=== PATIENT | male | born 1965 | race Caucasian/White ===

== ENCOUNTER 2017-02-07 09:04 | Emergency (ER) | payer OTHER ==
[2017-02-07] VITALS (8 sets, daily range): BP systolic 127–187; BP diastolic 86–126; PULSE 79–89; RESP 15–21; O2SAT 93–98
[~2017-02-07] VITALS: Ht 177.8 cm; Wt 141.4 kg
[~2017-02-07 09:04] MED LIST: NO HOME MEDICATIONS
--- NOTE | 2017-02-07 09:34 | ED.REPORT ---
HPI-Chest Pain 40 and Over Date of Service February 07, 2017 ED Provider: Jagjit Patel MD 51 y/o male with a hx of HTN presents to the ED complaining of sharp substernal chest pain, onset 06:30, that lasted a couple of minutes. The pt reports his pain has now become dull and rates it 7/10 in severity. He states the pain " went through me" but denies the pain radiating to a specific location.The pt reports he laid down to rest when he began experiencing sudden SOB. Deep breathing exacerbates the pain. He denies fever, diaphoresis, hematemesis, chest pain with palpation and taking hormone based medications. He states he has had heart burn before and today's sx seem different. The pt has never experienced similar sx before. He went to the Urgent Care where he was given Aspirin and advised to go to ED. The pt has not been taking his BP medication. His BP on arrival is 187/126. The pt reports he has chronic allergies which result in cough and mild chest pain. The pt takes Zantac occasionally. He has not been given Nitro yet. No hx of blood clots. Nursing Notes Stated Complaint: CHEST PAIN Chief Complaint: Chest Pain Nursing Notes Reviewed: Yes Allergies: Coded Allergies: acetaminophen (Verified Allergy, Mild, GI UPSET - NAUSEA, 07/10/16) hydrocodone (Verified Allergy, Mild, GI UPSET - NAUSEA, 07/10/16) Miscellaneous Medications ([No Home Medications]) General Time Seen by MD: 09:29 Chief Complaint Chest pain Hx Obtained From: Patient Arrived By: Walk-in Sudden in Onset?: Yes Onset Occurred: 1 - 4 hours ago Symptom Duration: 1 - 15 minutes Location: : Substernal Quality: Painful Radiation: : Does not radiate Severity: Current: Pain level 2 out of 10 Severity: Maximum: Severe Recent Healthcare: No recent doctor visit Similar Sx Previous: No Past Medical History Past Medical History Reports: Hypertension Past Surgical History Orthoscopic knee surgery Smoking History Current Every Day Smoker (Cigar) Social History Alcohol Use: "Social" Drug Use: Denies drug use Other Social History: Good social support Ambulatory Status Independent Review of Systems Constitutional: Denies: Fever Respiratory: Reports: Shortness of breath Cardiovascular: Reports: Chest pain GI: Denies: Hematemesis Skin: Denies Diaphoresis Complete sys rev & neg: except as marked. Physical Exam Initial Vital Signs Vital Signs (First) Date Time Temp Pulse Resp B/P Pulse Ox O2 Delivery O2 Flow Rate FiO2 02/07/17 09:08 36.9 89 18 187/126 98 Room Air Initial VS: Reviewed Head / Eyes: Atraumatic, Normocephalic, PERRL Neck: Supple, Full range of motion Skin: Warm, Dry, No cyanosis Neurologic: Alert, Oriented, Nonfocal General/Constitutional: Awake, Alert Afebrile Comfortable Non-diaphoretic Respiratory / Chest: Atraumatic, No rales, No rhonchi Inspiratory wheezes in upper left lobe. Cardiovascular: Heart rate NL, Regular rhythm, Heart sounds NL, No gallop, No murmurs, No rubs Lower Ext Edema: Positive: Bilateral 1+, Pitting Bilateral and storng pulses. Back: Atraumatic, Full range of motion Lower Extremity / Pelvis / MS: Atraumatic, Full range of motion, Neurologic intact, Vascular intact Upper Extremity / MS: Atraumatic, Full range of motion, Neurologic intact, Vascular intact Interpretation & Diagnostics Lab Results Interpretation Result Diagram: 02/07/17 0925 02/07/17 0925 Test 02/07/17 09:25 02/07/17 11:35 White Blood Count 8.1th/mm3 (3.8-10.1) Red Blood Count 5.08mil/mm3 (4.40-5.80) Hemoglobin 16.3g/dL (13.8-17.2) Hematocrit 48.1% (41.0-50.0) Mean Corpuscular Volume 94.7fL (81-100) Mean Corpuscular Hemoglobin 32.1pg (27.0-35.0) Mean Corpuscular Hemoglobin Concent 33.9% (32.0-37.0) Red Cell Distribution Width 13.8% (12.3-15.4) Platelet Count 220bil/L (150-400) Neutrophils (%) (Auto) 60.9% (40-74) Lymphocytes (%) (Auto) 24.6% (14-46) Monocytes (%) (Auto) 11.1% (4-12) Eosinophils (%) (Auto) 2.5% (0-5) Basophils (%) (Auto) 0.4% (0-3) D-Dimer < 0.50mg/L FEU (<0.50) Sodium Level 138mEq/L (134-144) Potassium Level 4.2mEq/L (3.5-5.2) Chloride Level 100mEq/L (97-108) Carbon Dioxide Level 26mmol/L (18-29) Blood Urea Nitrogen 14mg/dL (6-24) Creatinine 0.80mg/dL (0.76-1.27) Estimat Glomerular Filtration Rate 109mL/min (>59) Glucose Level 120mg/dL (60-99) Calcium Level 9.1mg/dL (8.5-10.1) Magnesium Level 1.9mg/dL (1.6-2.6) Total Bilirubin 0.2mg/dL (0.0-1.2) Aspartate Amino Transf (AST/SGOT) 31U/L (0-50) Alanine Aminotransferase (ALT/SGPT) 57U/L (0-44) Alkaline Phosphatase 69U/L (25-150) Total Protein 6.9g/dL (6.4-8.4) Albumin 3.9g/dL (3.4-5.0) Hold Mercer Top Tube Received (Received) Troponin T < 0.010ug/L (0.0-0.011) ECG Interpretation ECG Interpretation: Normal sinus rhythm. Rate 83. Time: 09:29 Interpreted by: ED physician X-Ray Chest Interpretation Chest Xray Interpretation: IMPRESSION: Negative chest. No acute cardiopulmonary process is evident. Dictated by: Richard Madrid M.D. on 02/07/2017 at 8:44 Approved by: Richard Madrid M.D. on 02/07/2017 at 8:44 View: Portable, 1 view Interpretation / Wet Read by: Interpret - Radiologist Re-Eval/Medical Decision Source of Hx: Old records, Family Time of Eval: 13:01 Re-Evaluation/Progress Note: Rechecked pt. Discussed lab, imaging results and diagnosis. Informed the pt of the plan to discharge. Pt understands and agrees with plan. F/U instructions and RTER warning given. All questions addressed. Counseled Regarding: Diagnosis, Lab results Discharge & Departure Primary Impression: Chest pain Chest pain type: unspecified Qualified Code: R07.9 - Chest pain, unspecified Disposition: Home Discharge Condition All VS Reviewed: Yes Condition: Stable Patient Instructions: Chest Pain (ED) Additional Instructions: Your lab and imaging results were reassuring. There is no sign of heart attack, pneumonia, aortic dissection (tear in a blood vessel), or pulmonary embolism ( blood clot in the chest). You may require further cardiac testing. I recommend that you put your primary care doctor to discuss further testing. You may be able to get an appointment sooner if you mention you need the test for an ER follow-up. Return to the emergency department in case of difficulty breathing, significant increase in chest pain, or any new or concerning symptoms. Referrals: [facility] Scribe Attestation Portions of this note were transcribed by Alcides Ervin. I, , personally performed the history, physical exam and medical decision-making;I reviewed and confirmed the accuracy of the information in the transcribed note. Signed by Ira Daugherty. 02/07/17 1634 copies to: [facility] Jagjit Patel MD February 07, 2017 09:34 Alcides Ervin February 07, 2017 09:51 Alcides Ervin February 07, 2017 09:51
[2017-02-07 09:36] LABS: BASOPHILS % (AUTO) 0.4 % (0-3); EOSINOPHILS % (AUTO) 2.5 % (0-5); MONOCYTES % (AUTO) 11.1 % (4-12); Mean Corpuscular Hemoglobin 32.1 pg (27.0-35.0); Mean Corpuscular Volume 94.7 fL (81-100); NEUTROPHILS % (AUTO) 60.9 % (40-74); Platelet Count 220 bil/L (150-400)
--- NOTE | 2017-02-07 09:46 | DRSVH ---
PROCEDURE: X-RAY CHEST ONE VIEW, PORTABLE ([id number]) INDICATIONS: CHEST PAIN TECHNIQUE: One view of the chest was acquired. COMPARISON: None. FINDINGS: Surgical changes and devices: None. Lungs and pleura: No pleural effusions or pneumothorax. Lungs are clear. Mediastinum: Mediastinal contours appear normal. Heart size is normal. Bones and chest wall: No suspicious bony lesions. Overlying soft tissues appear unremarkable. IMPRESSION: Negative chest. No acute cardiopulmonary process is evident. Dictated by: Richard Madrid M.D. on 02/07/2017 at 8:44 Approved by: Richard Madrid M.D. on 02/07/2017 at 8:44
[2017-02-07 09:59] LABS: TROPONIN T < 0.010 ug/L (0.0-0.011)
[2017-02-07 10:09] LABS: Magnesium 1.9 mg/dL (1.6-2.6)
== END 2017-02-07 13:27 | disposition home or self-care (01) ==
LOC: SED 09:04
DX: R07.2 Precordial pain (principal); I10 Essential (primary) hypertension; F17.200 Nicotine dependence, unspecified, uncomplicated; Z88.5 Allergy status to narcotic agent; Z88.8 Allergy status to other drugs, medicaments and biological substances